=== PATIENT | male | born 1990 | race African-American/Black ===

== ENCOUNTER 2016-12-10 17:33 | Emergency (ER) | payer MEDICAID ==
[~2016-12-10] VITALS: Ht 180.3 cm; Wt 84.1 kg
[~2016-12-10 17:33] MED LIST: ALBU6.7H IH
[2016-12-10 17:41] VITALS: BP 122/64
== END 2016-12-10 18:32 | disposition left against medical advice (07) ==
LOC: EMS 17:35
DX: R10.9 Unspecified abdominal pain (principal); R11.2 Nausea with vomiting, unspecified; R19.7 Diarrhea, unspecified; J45.909 Unspecified asthma, uncomplicated; Z53.21 Procedure and treatment not carried out due to patient leaving prior to being seen by health care provider